=== PATIENT | female | born 1990 | race African-American/Black ===

== ENCOUNTER 2018-10-17 07:43 | Emergency (ER) | payer OTHER ==
[2018-10-17 07:58] VITALS: BP 123/63; PULSE 83; TEMP 99.2; BMI 43.1
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
[2018-10-17] MEDS ORDERED: KETOROLAC TROMETHAMINE 30 MG/1 ML VIAL IM ONE (08:39)
[2018-10-17] MEDS ORDERED: KETOROLAC TROMETHAMINE 30 MG/1 ML VIAL ONE (08:54)
== END 2018-10-17 10:09 | disposition home or self-care (01) ==
LOC: JERFT 07:43 → JER 07:43 → JERFT 10:09
PROC: 3E0233Z Introduction of Anti-inflammatory into Muscle, Percutaneous Approach (ICD-10-PCS; principal; 2018-10-17)
DX: S13.4XXA Sprain of ligaments of cervical spine, initial encounter (principal); V44.6XXA Car passenger injured in collision with heavy transport vehicle or bus in traffic accident, initial encounter; Y92.414 Local residential or business street as the place of occurrence of the external cause; Y93.89 Activity, other specified; Y99.8 Other external cause status
CPT/HCPCS: 70486-TC; 84703; 99282-25